=== PATIENT | female | born 1965 | race Caucasian/White ===

== ENCOUNTER 2021-08-03 15:35 | Emergency (ER) | payer OTHER, SELFPAY ==
--- NOTE | ~2021-08-03 | XR_ITS ---
EXAMINATION: X-RAY RIGHT WRIST CLINICAL INFORMATION: Right hand swelling. COMPARISON: No similar priors. TECHNIQUE: 3 views of the right wrist were obtained. FINDINGS: No evidence of acute fractures or malalignment. The scapholunate interval and carpal rows are maintained. There is soft tissue edema. No radiopaque foreign bodies. XR/XR hand wrist RT IMPRESSION: Soft tissue edema without acute fractures or malalignment. If pain persists, consider a short-term interval image since early fractures could be radiographically occult.
[2021-08-03 15:46] VITALS: BP 160/85; PULSE 88; RESP 16; TEMP 36.8; O2SAT 97; BMI 33.5
--- NOTE | 2021-08-03 16:03 | ED_ITS ---
HPI - Extremity Problem General Chief complaint: Extremity Problem Stated complaint: right hand swelling Source: patient Mode of arrival: ambulatory Limitations: no limitations History of Present Illness HPI Narrative: 55-year-old female presents with right hand pain and swelling. States that she cannot get her rings off. She has pain on movement. She does not report any other symptoms. MD Complaint: extremity pain and extremity swelling Onset (ago): day(s) Pain Consistency: constant Location: right and upper extremity Severity scale (1-10): 7 Quality: aching Relieving factors: nothing Exacerbating factors: range of motion Associated symptoms: denies other symptoms Related Data Allergies Allergy/AdvReac Type Severity Reaction Status Date / Time No Known Allergies Allergy Verified 08/03/21 17:14 Review of Systems Review of Systems: Constitutional: No Fever, No Chills ENT/Mouth: No Ear Pain, No Hoarseness, No sore throat Eyes: No Eye Pain, No Swelling, No Redness, No Foreign Body Cardiovascular: No Chest Pain, No SOB Respiratory: No Cough, No Dyspnea Gastrointestinal: No Nausea, No Vomiting, No Diarrhea, No abdominal Pain Genitourinary: No Dysuria, No Hematuria Musculoskeletal: positive right hand pain and swelling, No Myalgias Skin: No Skin lacerations, No rash Neuro: No Weakness, No Numbness, No Paresthesias, No Loss of Consciousness, No Dizziness, No Headache Psych: No Anxiety/Panic, No Depression Heme/Lymph: no easy bruising, no Lymphadenopathy Endocrine: No Polyuria, No Polydipsia Yes all other systems are reviewed and are negative PMFSH Past Medical History Attestation statement: The following information was validated with the patient. Source: old records reviewed Medical History HLD (hyperlipidemia) Hypothyroid Neuropathy Social History Social History Advance Directives: No Advance Directives Information Provided: No Patient : No Physical Exam Vital Signs: Vital Signs: Last Vital Signs Temp 98.2 F 08/03/21 15:46 Pulse 88 08/03/21 15:46 Resp 16 08/03/21 15:46 BP 160/85 H 08/03/21 15:46 Pulse Ox 97 08/03/21 15:46 Body Mass Index 33.5 Appearance: Alert. Oriented X3. No acute distress. Eyes: Pupils equal, round and reactive to light. ENT: Pharynx normal. Neck: Normal inspection. Neck supple. CVS: Normal heart rate and rhythm. Pulses normal. Respiratory: No respiratory distress. Breath sounds normal. Abdomen: Soft and nontender. Skin: Skin warm and dry. Normal skin color. Normal skin turgor. Extremities: Full range of motion to bilateral extremities, pulses equal, brisk capillary refill. Neurovascularly intact. Fingers swollen. No erythema, bruising, or warmth to touch. Negative snuffbox tenderness. Hands appear bilaterally equal. Plus one bilateral lower edema, brisk capillary refill neurovascularly intact. Neuro: No motor deficit. No sensory deficit. Course Course Course Narrative: 55-year-old female presents with right hand pain and swelling. States that she has had this for several weeks, does not report any injury, allergies, or trauma. 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 She is unable to remove the rings on the right hand, states that fingers have been swollen for several weeks and has not been able to take her rings off in months. Patient does have brisk capillary refill and full range of motion to the fingers, detailed discussion with patient regarding needing to remove the rings to prevent decreased circulation. Patient is in agreement. Would like to try other measures prior to cutting rings off. Patient stated that she used to take a diuretic to help reduce swelling, however stated that she stopped taking it because she read that the medication can cause gout flare ups and toenail infections. Heart rate is 88, no pain on inspiration or shortness of breath on exertion. ED operating theatre technician attempted to remove rings with soap and water, string, and other methods, unable to remove rings. This SMALL ENGINE SPECIALIST cut rings off with shear, no visible injury after ring removal. X-rays are pending. X-rays are negative for obvious fracture, states that edema is suggestive of occult fracture. Patient is asking for medications stronger than Motrin, I declined patient's request, and did give her several days off from work so she could follow up with primary care physician appropriately. Patient is dissatisfied with care, stated that I did not take any lab values for do any other testing. I did explain to her that she did not have any fevers, abnormal heart rhythms, or any history suggestive of DVT. MDM - Extremity (Nontraumatic) Differential Diagnosis Differential diagnosis: Likely cellulitis and deep venous thrombosis of upper extremity Medical Records Attestation: I reviewed the patient's medical records. Imaging Data Hand x-ray: Attestation: I personally reviewed and interpreted this imaging study as follows: Radiologist's impression: EXAMINATION: X-RAY RIGHT WRIST CLINICAL INFORMATION: Right hand swelling.? COMPARISON: No similar priors.? TECHNIQUE: 3 views of the right wrist were obtained.? FINDINGS: No evidence of acute fractures or malalignment. The scapholunate interval and carpal rows are maintained. There is soft tissue edema. No radiopaque foreign bodies.? XR/XR hand wrist RT IMPRESSION: Soft tissue edema without acute fractures or malalignment. If pain persists, consider a short-term interval image since early fractures could be radiographically occult.? Discharge Plan Discharge Clinical Impression: Hand pain, right Edema Qualifiers: Edema type: unspecified Qualified Code(s): R60.9 - Edema, unspecified Patient Disposition: Home, Self-Care Instructions: Edema (ED) Additional Instructions: You were evaluated for right hand pain and swelling. X-rays show swelling suggestive of fracture. Please keep velcro wrist splint in place until you see your primary care physician for further workup. Your blood pressure was elevated at 160/85. You must follow up with your primary care physician for elevated blood pressure. You may need to restart taking diuretics, medications to help reduce fluid retention. Thank you for choosing this emergency department for evaluation. Please follow-up with primary care physician as needed. Return to the emergency department for any new, concerning, or worsening symptoms. Stand Alone Forms: Work/School Release Interventions: ED Discharge Assessment Last Done: 08/03/21 17:50 Discharge Date/Time: 08/03/21 17:52
== END 2021-08-03 17:52 | disposition home or self-care (01) ==
PROVIDERS: Emergency Provider Emergency Medicine; PCP Internal Medicine
DX: M79.641 Pain in right hand (principal); R60.0 Localized edema; Z79.899 Other long term (current) drug therapy
CPT/HCPCS: 73110; 73130; 99283; 99284